=== PATIENT | male | born 1975 | race Two or more races ===

== ENCOUNTER 2016-05-28 14:32 | Emergency (ER) | payer MEDICAID ==
[~2016-05-28] VITALS: Ht 172.7 cm; Wt 81.6 kg
[2016-05-28] MEDS ORDERED: IPRATROPIUM NEB FS 0.5 MG/2.5 ML AMPUL.NEB ONE (14:48)
[2016-05-28] MEDS ORDERED: ALBUTEROL FS 2.5 MG/3 ML VIAL.NEB ONE ×2 (14:48→15:49)
[2016-05-28] MEDS ORDERED: IV NS 0.9% 500 ML IV ONE (14:54)
[2016-05-28] MEDS ORDERED: IV SET PRIMARY 1 EA INFUS.SET MC ONE (14:54)
[2016-05-28] MEDS ORDERED: IV NS 0.9% 500 ML BAG IV ONE (15:00)
[2016-05-28] MEDS ORDERED: IPRATROPIUM NEB FS 0.5 MG/2.5 ML AMPUL.NEB NEB ONE (15:00)
[2016-05-28] MEDS ORDERED: ACETAMINOPHEN ES 500 MG TABLET PO ONE (15:00)
[2016-05-28] MEDS ORDERED: ALBUTEROL FS 2.5 MG/3 ML VIAL.NEB CONTNEB ONE (15:00)
--- NOTE | 2016-05-28 15:00 | NUR ---
PT CAME IN FOR COUGH, CONGESTION, AND FEVER X 5 DAYS. NAD NOTED. VSS. SEEN BY MD FOR EVAL. RR EVEN, MINIMALLY LABORED. SAFETY AND COMFORT MEASURES PROVIDED. WILL MONITOR.
[2016-05-28 15:02] LABS: BASOPHILS # (AUTO) 0.2 /CMM (0.0-0.2); BASOPHILS % (AUTO) 1.8 % (0.0-2.0); EOSINOPHILS # (AUTO) 0.2 /CMM (0.0-0.7); EOSINOPHILS % (AUTO) 2.3 % (0.0-6.0); HEMATOCRIT 51 % (39-51); LYMPHOCYTES # (AUTO) 0.7 /CMM (0.8-4.8); LYMPHOCYTES % (AUTO) 8.2 % (20.0-44.0); MEAN CORPUSCULAR HEMOGLOBIN 31 PG (26.0-33.0); MEAN CORPUSCULAR HGB CONC 34 g/dl (31.0-36.0); MEAN CORPUSCULAR VOLUME 92 fL (80-96); MONOCYTES % (AUTO) 11.8 % (2.0-12.0); NEUTROPHILS # (AUTO) 6.3 /CMM (1.8-8.9); NEUTROPHILS % (AUTO) 75.9 % (43.0-81.0); PLATELET COUNT (AUTO) 145 /CMM (150-450); RDW COEFFICIENT OF VARIATION 13.1 (11.5-15.0); RED BLOOD CELL COUNT(AUTO) 5.53 MIL/uL (4.5-6.0); WHITE BLOOD COUNT (AUTO) 8.4 K/uL (4.3-11.0)
[2016-05-28] MEDS ORDERED: ACETAMINOPHEN ES 500 MG TABLET ONE (15:05)
--- NOTE | 2016-05-28 15:10 | NUR ---
IV ACCESS STARTED. BLOOD DRAWN FOR LABS. PT MEDICATED ORDERED.
[2016-05-28 15:12] LABS: CALCIUM, SERUM 9.1 mg/dL (8.5-10.1); CARBON DIOXIDE 27 mmol/L (21-32); CHLORIDE 100 mmol/L (98-107); CREATININE 1.2 mg/dL (0.6-1.3); GFR 67 mL/min (>60); GLUCOSE 115 mg/dL (74-106); POTASSIUM 3.8 mmol/L (3.5-5.1); SODIUM SERUM 137 mmol/L (136-145); UREA NITROGEN, BLOOD 15 mg/dL (7-18)
[2016-05-28 15:20] LABS: TROPONIN I < 0.017 ng/mL (0.00-0.056)
[2016-05-28 15:24] LABS: B-TYPE NATRIURETIC PEPTIDE 25 PG/ML (0-125)
--- NOTE | 2016-05-28 15:30 | NUR ---
RT AT BS FOR BREATHING TX
[2016-05-28] MEDS ORDERED: ALBUTEROL FS 2.5 MG/3 ML VIAL.NEB NEB ONE (16:00)
--- NOTE | 2016-05-28 16:22 | NUR ---
IV removed. Catheter intact and site benign. Pressure and 4x4 applied to site. No bleeding noted.Patient discharged to home in stable condition. Written and verbal after care instructions given. Patient verbalizes understanding of instruction.
[2016-05-28 16:24] VITALS: BP 132/77
== END 2016-05-28 16:25 | disposition home or self-care (01) ==
LOC: ER 14:35
DX: R05 Cough (principal)
CPT/HCPCS: 36415; 71010-TC; 80048-TC; 83605-TC; 83880; 84484-TC; 85025-TC; 87040-TC; 87400; A4606; J7040; Z7610